=== PATIENT | female | born 2000 | race Caucasian/White ===

== ENCOUNTER 2021-07-09 23:18 | Emergency (ER) | payer OTHER ==
[~2021-07-09] VITALS: Ht 157.5 cm; Wt 79.5 kg
[2021-07-09 23:26] VITALS: BP 128/82
[2021-07-09] MEDS ORDERED: AUD NEB (23:41)
[2021-07-10] MEDS ORDERED: AMOX1TAB16 PO (00:12)
[2021-07-10] MEDS ORDERED: IBUP-1554 PO (00:12)
[2021-07-10] MEDS ORDERED: ACET-2080 PO (00:12)
[2021-07-10] MEDS ORDERED: ACETAMINOPHEN/CODEINE 300-30 MG TABLET PO ONE (00:15)
[2021-07-10] MEDS ORDERED: IBUPROFEN 600 MG TABLET PO ONE (00:15)
[2021-07-10] MEDS ORDERED: AMOX TR/POT CLAV 875 MG/125 MG TABLET PO ONE (00:15)
== END 2021-07-10 00:35 | disposition home or self-care (01) ==
LOC: EMS 23:22
DX: K05.10 Chronic gingivitis, plaque induced (principal); L03.211 Cellulitis of face; J45.909 Unspecified asthma, uncomplicated; Z79.899 Other long term (current) drug therapy
CPT/HCPCS: 99284; Z7502; Z7610

== ENCOUNTER 2023-02-15 17:08 | Emergency (ER) | payer OTHER ==
[~2023-02-15] VITALS: Ht 160 cm; Wt 68.2 kg
[~2023-02-15 17:08] MED LIST: ACET-2080 PO; ALBU2.5V39 NEB; AMOX1TAB16 PO; IBUP-1554 PO
[2023-02-15 17:10] VITALS: TEMP 98.5
[2023-02-15 17:47] LABS: BASOPHILS % (AUTO) 0.5 % (0.0-2.0); EOSINOPHILS % (AUTO) 0.5 % (1.0-6.0); HEMATOCRIT 44.4 % (36-46); HEMOGLOBIN 15.1 g/dL (12.0-16.0); LYMPHOCYTES # (AUTO) 1.8 K/uL (1.0-4.8); LYMPHOCYTES % (AUTO) 20.9 % (22.0-44.0); MEAN CORPUSCULAR HGB CONC 33.9 G/dL (31.0-37.0); MEAN CORPUSCULAR VOLUME 88 fL (80-100); MONOCYTES # (AUTO) 0.5 K/uL (0.1-1.0); MONOCYTES % (AUTO) 6.3 % (2.0-9.0); NEUTROPHILS # (AUTO) 6.1 K/uL (1.8-7.7); NEUTROPHILS % (AUTO) 71.8 % (40.0-70.0); PLATELET COUNT (AUTO) 366 K/uL (150-450); RED BLOOD CELL COUNT(AUTO) 5.03 MIL/uL (4.00-5.20); RED CELL DISTRIBUTION WIDTH 13.2 % (11.5-14.5); WHITE BLOOD COUNT (AUTO) 8.5 K/uL (4.5-11.0)
[2023-02-15 17:59] LABS: ANION GAP 11 mmol/L (8-16); CARBON DIOXIDE 28 mmol/L (22-29); CHLORIDE 99 mmol/L (98-107); CREATININE 0.67 mg/dL (0.60-1.30); GLUCOSE,RANDOM 94 mg/dL (70-110); POTASSIUM 4.1 mmol/L (3.5-5.1); SODIUM SERUM 138 mmol/L (136-145); UREA NITROGEN, BLOOD 7 mg/dL (7-18)
[2023-02-15 18:00] LABS: CALCIUM, TOTAL 9.8 mg/dL (8.8-10.5); GLOMERULAR FILTR. RATE CALC > 60 mL/min (>60)
[2023-02-15 18:12] LABS: ALANINE AMINOTRANSFERASE 17 U/L (12-78); ALBUMIN 3.9 g/dL (3.4-5.0); ALKALINE PHOSPHATASE 77 U/L (46-116); ASPARTATE AMINOTRANSFERASE 14 U/L (15-37); BILIRUBIN,TOTAL 0.4 mg/dL (0.1-1.0); HCG,QUANTITATIVE < 1 mIU/mL (0-6); LIPASE 32 U/L (16-77); TOTAL PROTEIN, SERUM 8.5 g/dL (6.4-8.2)
[2023-02-15 18:30] LABS: APPEARANCE,URINE CLEAR (CLEAR); BILIRUBIN,URINE NEGATIVE (NEGATIVE); COLOR,URINE LIGHT YELLOW (YELLOW); GLUCOSE, URINE (UA) NEGATIVE (NEGATIVE); KETONES,URINE 40-60 mg/dL (NEGATIVE); LEUKOCYTE ESTERASE ,URINE NEGATIVE (NEGATIVE); NITRATE,URINE NEGATIVE (NEGATIVE); OCCULT BLOOD,URINE NEGATIVE (NEGATIVE); PROTEIN,URINE TRACE mg/dL (NEGATIVE); SPECIFIC GRAVITIY, URINE 1.022 (1.003-1.030); UROBILINOGEN,URINE <=1.0 mg/dL (<=1.0)
[2023-02-15] MEDS ORDERED: ONDANSETRON HCL 4 MG TABLET PO ONE (19:15)
[2023-02-15] MEDS ORDERED: FAMOTIDINE 20 MG TABLET PO ONE (19:15)
[2023-02-15] MEDS ORDERED: IBUPROFEN 600 MG TABLET PO ONE (19:15)
[2023-02-15] MEDS ORDERED: MAG HYDROX/ALUMINUM HYD/SIMETH 30 ML SUSPENSION UDCUP PO ONE (19:15)
[2023-02-15 19:55] VITALS: BP 128/76; PULSE 79; RESP 18
[2023-02-15] MEDS ORDERED: ONDA-104 PO (20:31)
== END 2023-02-15 21:45 | disposition home or self-care (01) ==
LOC: EMS 17:08
DX: R19.7 Diarrhea, unspecified (principal); R11.2 Nausea with vomiting, unspecified; R10.13 Epigastric pain; J45.909 Unspecified asthma, uncomplicated
CPT/HCPCS: 99284; 76700; 80053; 81003; 83690; 84702; 85025; 36415; Q0162